=== PATIENT | male | born 1935 | race Asian ===

== ENCOUNTER 2017-02-03 13:31 | Inpatient (IN) | payer MEDICARE, OTHER ==
[~2017-02-03] VITALS: Ht 170.2 cm; Wt 74.7 kg
--- NOTE | 2017-02-03 14:34 | RADRPT ---
PROCEDURE: CT brain without contrast CLINICAL INDICATION: Seizure, altered mental status TECHNIQUE: CT of the brain without contrast performed on a multidetector CT scanner, with multiplan ar reformats. One or more of the following dose reduction techniques were used: Automated exposure control, adjustment in mA and / or kV according to patient size, use of iterative reconstructive luis f hnique. CTDIvol = 45 mGy; DLP = 720 mGy-cm. COMPARISON: None available FINDINGS: No acute intracranial hemorrhage is identified. There is prominence of the extraaxial spaces at the middle cranial fossa bilaterally following CSF density suggesting arachnoid cysts measuring up to a pproximately 4.2 cm on the left and 3 cm on the right. There is also suggestion of small area of en cephalomalacia of the anterior right temporal lobe with ex vacuo dilation of the right temporal horn . No significant mass effect or midline shift is identified. Ventricles and sulci are mild to moderately enlarged compatible with volume loss. There are moderate to severe areas of hypodensity in the periventricular - deep white matter which a re nonspecific but suggestive of chronic small vessel ischemic changes. Nascimento-white differentiation is preserved. Atherosclerotic calcifications of the proximal intracranial arteries are noted. There is partial bilateral ethmoid air cell opacification. Mastoid air cells and imaged paranasal s inuses grossly clear. IMPRESSION: 1. No evidence of acute intracranial pathology. 2. 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 3. Mild to moderate volume loss, with moderate to severe chronic small vessel ischemic changes. RPTAT: VV .Epifanio Padron MD, Date Time Electronically viewed and signed by .Epifanio Padron MD, MD on 02/03/2017 14:34 .O/
[2017-02-03] MEDS ORDERED: LEVETIRACETAM 500 MG (PMX) 100 ML IVPB ONE (15:00)
[2017-02-03 15:03] LABS: ADD SCAN DIFF NO
[2017-02-03 15:06] LABS: BASOPHILS % 0.2 % (0.0-2.0); HEMATOCRIT 42.9 % (42.0-52.0); HEMOGLOBIN 14.4 g/dl (14.0-18.0); LYMPHOCYTES % 7.9 % (15.0-51.0); MEAN CORPUSCULAR HEMOGLOBIN 32.6 pg (29.0-33.0); MEAN CORPUSCULAR HGB CONC 33.6 g/dl (32.0-37.0); MEAN CORPUSCULAR VOLUME 97.1 fl (82.0-101.0); MEAN PLATELET VOLUME 10.8 fl (7.4-10.4); MONOCYTE # 0.7 10^3/ul (0.3-0.9); MONOCYTES % 5.6 % (0.0-11.0); PLATELET COUNT 166 10^3/UL (140-415); RED BLOOD COUNT 4.42 10^6/ul (4.70-6.10); WHITE BLOOD COUNT 12.8 10^3/ul (4.8-10.8)
[2017-02-03] MEDS ORDERED: ATOR20TA38 PO (15:10)
[2017-02-03] MEDS ORDERED: CANA100T PO (15:12)
[2017-02-03] MEDS ORDERED: AMLO1CAP3 PO (15:12)
[2017-02-03] MEDS ORDERED: GLIM4TAB55 PO (15:12)
[2017-02-03] MEDS ORDERED: TAMS-14 PO (15:13)
[2017-02-03] MEDS ORDERED: SITA1TAB PO (15:13)
[2017-02-03] MEDS ORDERED: MONT10TA21 PO (15:14)
[2017-02-03] MEDS ORDERED: ADV25050 INHALATION (15:14)
[2017-02-03] MEDS ORDERED: ATOR40TA68 PO (15:15)
[2017-02-03] MEDS ORDERED: DORZ10DR6 BOTH EYES (15:17)
[2017-02-03 15:20] LABS: ALBUMIN 4.7 g/dl (3.3-4.9); ALBUMIN/GLOBULIN RATIO 1.74; CREATININE 1.01 mg/dl (0.61-1.24); POTASSIUM 4.1 mmol/L (3.5-5.1); TOTAL PROTEIN 7.4 g/dl (6.1-8.1)
[2017-02-03 15:27] LABS: ADD UMIC YES; URINE BILIRUBIN (Dip) NEGATIVE (NEGATIVE); URINE BLOOD (Dip) TRACE (NEGATIVE); URINE COLOR LT. YELLOW (YELLOW); URINE GLUCOSE (Dip) >=1000 % (NEGATIVE); URINE KETONES (Dip) 40 (NEGATIVE); URINE LEUKOCYTE ESTERASE (Dip) NEGATIVE (NEGATIVE); URINE NITRITE (Dip) NEGATIVE (NEGATIVE); URINE TOTAL PROTEIN (Dip) NEGATIVE (NEGATIVE); URINE UROBILINOGEN (Dip) 0.2 E.U./dL (0.1-1.0)
[2017-02-03 15:31] LABS: TROPONIN-I 0.069 ng/ml (0.00-0.12)
[2017-02-03 15:36] LABS: CALCIUM 10.4 mg/dl (8.4-10.2)
--- NOTE | 2017-02-03 15:49 | ERA ---
ER Documentation Chief Complaint Date/Time DATE: 02/03/17 TIME: 15:47 Chief Complaint BIBA, FOUND WANDERING ON THE STREET. HPI 81-year-old man brought in by EMS for confusion. They found him at a bus stop when multiple shirts and a jacket in hot weather, he was confused and not able to answer all questions, blood sugar at the scene was normal. He generally has a normal baseline mental status and has no history of seizure disorder. It seems he had recently fallen because of abrasions to the knee and wrist, he had no loss of bladder control although he may have lost bowel control because nurses noted feces in his pants. He has had no recent fevers or chills, no complaints of chest pain or shortness of breath. HPI was supplemented by later speaking to family members were at the bedside, reviewing past medical history, speaking to EMS, and nursing staff. ROS All systems reviewed and are negative except as per history of present illness. Medications Home Meds Reported Medications Dorzolamide/Timolol* (Dorzolamide/Timolol*) 10 Ml Drops, 1 DROP BOTH EYES BID, # 1 EA 02/03/17 Atorvastatin* (Atorvastatin*) 40 Mg Tablet, 40 MG PO QHS, #30 TAB 02/03/17 Montelukast Sodium* (Singulair*) 10 Mg Tablet, 10 MG PO QHS, #30 TAB 02/03/17 Salmeterol Xinaf/Fluticasone* (Advair*) 250-50 Diskus Inhaler, 1 INH INHALATION BID, #1 INHALER 02/03/17 Tamsulosin Hcl* (Flomax*) 0.4 Mg Cap.er.24h, 0.4 MG PO DAILY, CAP 02/03/17 Sitagliptin Phos/Metformin HCl (Janumet 50-500 mg Tablet) 1 Each Tablet, 1 EACH PO BID, TAB 02/03/17 Glimepiride* (Amaryl*) 4 Mg Tablet, 4 MG PO WITH BREAKFAST DINNE, TAB 02/03/17 Canagliflozin (Invokana) 100 Mg Tablet, 100 MG PO DAILY, TAB 02/03/17 Amlodipine Besylate/Benazepril (Lotrel 5-40 mg Capsule) 1 Each Capsule, 1 EACH PO DAILY, CAP 02/03/17 Discontinued Reported Medications Atorvastatin Calcium* (Atorvastatin Calcium*) 20 Mg Tablet, 20 MG PO QHS, #30 TAB 02/03/17 Allergies Allergies: Coded Allergies: No Known Allergy (Unverified , 02/03/17) PMhx/Soc Previous strokes, glaucoma, diabetes mellitus, hypertension, chronic obstructive pulmonary disease, recurrent dizziness FmHx Family History: diabetes Physical Exam Vitals Vital Signs Date Time Temp Pulse Resp B/P Pulse Ox O2 Delivery O2 Flow Rate FiO2 02/03/17 15:42 91 15 148/69 97 Nasal Cannula 2.0 02/03/17 15:10 94 18 144/74 97 Nasal Cannula 2.0 02/03/17 14:50 100.4 02/03/17 13:55 97.1 112 20 140/78 98 Physical Exam GENERAL: Well-developed, well-nourished, confused, dehydrated, afebrile, confused possibly postictal. HEENT: Dry mucous membranes, pink conjunctiva, no cervical spine tenderness or step-off deformities, no goiter, no jaundice or icterus, extraocular movements intact without pain. No submandibular induration, and no pharyngeal erythema NEURO: Eyes open, patient nonverbal, pupils constricted but reactive, no focal deficits or facial asymmetry, appears confused CARDIAC: Tachycardic and regular no murmurs rubs or gallops LUNGS: Clear bilaterally no wheezing crackles or stridor ABDOMEN: Soft nontender, no guarding, no rigidity, no rebound, no psoas sign no obturator sign. Normoactive bowel sounds SKIN: Warm and dry to touch, abrasion to the right medial wrist without bony deformity, no lacerations, no ecchymosis, no target lesions, and without ulcers EXTREMITIES: No clubbing cyanosis or edema, calves are bilaterally symmetrical, no Homans sign, no popliteal cord sign. Distal pulses equal and bilateral PSYCH: Normal affect without agitation or irritability Result Diagram: 02/03/17 1459 02/03/17 1459 Results 24 hrs Laboratory Tests Test 02/03/17 14:59 02/03/17 15:05 White Blood Count 12.810^3/ul Red Blood Count 4.4210^6/ul Hemoglobin 14.4g/dl Hematocrit 42.9% Mean Corpuscular Volume 97.1fl Mean Corpuscular Hemoglobin 32.6pg Mean Corpuscular Hemoglobin Concent 33.6g/dl Red Cell Distribution Width 13.0% Platelet Count 90646^3/UL Mean Platelet Volume 10.8fl Neutrophils % 86.0% Lymphocytes % 7.9% Monocytes % 5.6% Eosinophils % 0.0% Basophils % 0.2% Nucleated Red Blood Cells % 0.0/100WBC Neutrophils # 11.010^3/ul Lymphocytes # 1.010^3/ul Monocytes # 0.710^3/ul Eosinophils # 0.010^3/ul Basophils # 0.010^3/ul Nucleated Red Blood Cells # 0.010^3/ul Sodium Level 148mmol/L Potassium Level 4.1mmol/L Chloride Level 111mmol/L Carbon Dioxide Level 22mmol/L Anion Gap 19 Blood Urea Nitrogen 25mg/dl Creatinine 1.01mg/dl Glucose Level 281mg/dl Calcium Level 10.4mg/dl Total Bilirubin 1.0mg/dl Direct Bilirubin 0.00mg/dl Indirect Bilirubin 1.0mg/dl Aspartate Amino Transf (AST/SGOT) 25IU/L Alanine Aminotransferase (ALT/SGPT) 51IU/L Alkaline Phosphatase 91IU/L Troponin I 0.069ng/ml Total Protein 7.4g/dl Albumin 4.7g/dl Globulin 2.70g/dl Albumin/Globulin Ratio 1.74 Lipase 68U/L Urine Color LT. YELLOW Urine Clarity CLEAR Urine pH 5.0 Urine Specific Westhoff 1.010 Urine Ketones 40 Urine Nitrite NEGATIVE Urine Bilirubin NEGATIVE Urine Urobilinogen 0.2 E.U./dL Urine Leukocyte Esterase NEGATIVE Urine Microscopic RBC 0-2/HPF Urine Microscopic WBC 0-2/HPF Urine Transitional Epithelial Cells FEW Urine Hemoglobin TRACE Urine Glucose >=1000% Urine Total Protein NEGATIVE Current Medications Medications (Trade) Dose Ordered Sig/Hever Route PRN Reason Start Time Stop Time Status Last Admin Dose Admin Levetiracetam 100 ml @ 400 mls/hr ONCE ONCE IVPB 02/03/17 15:00 02/03/17 15:15 DC 02/03/17 15:35 Sodium Chloride (NS) 1,000 ml @ 1,000 mls/hr Q1H ONCE IV 02/03/17 16:00 02/03/17 16:59 Procedures/MDM IV line was established patient was placed on monitoring manager rhythm strip revealed a sinus tachycardia at 110 bpm with upright P and T waves. Rectal temperature was 100.4 and hyperthermic. One AP view of the chest performed, read by me reveals no acute infiltrates, normal mediastinum, sharp costophrenic and cardiac borders, no air under the diaphragm. Otherwise unremarkable chest x-ray. EKG performed, read by me revealed a normal sinus rhythm at 95 bpm, normal axis , with a right ventricular conduction delay QRS duration 100 ms with a first- degree atrial ventricular block at 208 ms, no concerning ST elevations or depressions noted. CT scan revealed right temporal encephalomalacia although no acute bleed mass or shift. Please refer to radiologist dictation for full report although given his presentation and CT scan findings may have a epileptogenic focus and had new onset seizures. Patient received 2 L normal saline intravenously for dehydration and Keppra 500 mg IV for possible seizure. I do not suspect sepsis or septic shock. CBC was unremarkable, electrolytes revealed dehydration with a BUN/creatinine of 25/1, liver function tests are normal, troponin was negative. Urine analysis was negative for infection. Reevaluation: Patient's mental status has improved he is answering questions and following commands, family members are at the bedside state he is almost back to his baseline. Critical Care: Time: 33 minutes, this was time separate from other procedures. Treatments/Evaluations: Close monitoring and treatment of unstable vital signs, cardiorespiratory, and neurologic status, while maintaining tight balance of fluid, respiratory, and cardiac interventions. Patient will be admitted to telemetry setting for syncope possible new onset seizure. Patient was definitely dehydrated and may have been suffering from heat stroke Departure Diagnosis: Primary Impression: Acute encephalopathy Additional Impressions: Seizure Syncope Qualified Code: R55 - Syncope, unspecified syncope type Dehydration Condition: CLARA Valentin MD Feb 03, 2017 15:49
[2017-02-03 15:53] LABS: TRANSITIONAL EPI CELLS,URINE FEW; URINE RBCS 0-2 /HPF (0)
[2017-02-03] MEDS ORDERED: SOD CHLORIDE 0.9% 1,000 ML IV ONE (16:00)
--- NOTE | 2017-02-03 16:06 | RADRPT ---
PROCEDURE: XR Chest. CLINICAL INDICATION: Abdominal pain. TECHNIQUE: Single frontal view of the chest was obtained. COMPARISON: No. FINDINGS: The soft tissues are normal. There are degenerative osteophytes in the thoracic spine. The left ve ntricle is borderline enlarged. The cardiomediastinal silhouette and hilar structures are normal. T he pulmonary vasculature is normal. There is a left-sided aorta. The lungs are clear. The costophr enic angles are normal. There are clips along the lower left side of the neck. IMPRESSION: 1. There is no evidence of active cardiopulmonary disease. 2. No evidence of pneumoperitoneum. RPTAT:AAJJ Physician Eitan Date Time Electronically viewed and signed by Simon Corona Physician on 02/03/2017 16:06 ANAT/
--- NOTE | 2017-02-03 17:54 | RADRPT ---
PROCEDURE: XR right wrist. CLINICAL INDICATION: Wrist pain TECHNIQUE: 4 views are available for review. COMPARISON: No prior studies are available for comparison. FINDINGS: The osseous structures are normal in mineralization, architecture and alignment. No fracture or oss eous lesion is identified. The joints are unremarkable. No erosions are identified.The soft tissues are unremarkable. IMPRESSION: Unremarkable examination. RPTAT: HGDB .Haile Verma MD, MD Date Time Electronically viewed and signed by .Haile Verma MD, on 02/03/2017 17:54 .B/
[2017-02-03 19:00] VITALS: TEMP 98
[2017-02-03] MEDS ORDERED: ONDANSETRON 4 MG INJ IV PRN (19:30)
[2017-02-03] MEDS ORDERED: DOCUSATE SODIUM 100 MG CAP PO PRN (19:30)
[2017-02-03] MEDS ORDERED: NACL 0.9% 3 ML SYG IV SCH (19:30)
[2017-02-03] MEDS ORDERED: morphine 2 MG INJ IV PRN (19:30)
[2017-02-03] MEDS ORDERED: HYDROCODONE/APAP (5/325) TAB PO PRN (19:30)
[2017-02-03] MEDS ORDERED: ACETAMINOPHEN 325 MG TAB PO PRN (19:30)
[2017-02-03] MEDS ORDERED: GLUCOSE GEL 15 GRAM TUBE BUCCAL PRN (20:00)
[2017-02-03] MEDS ORDERED: GLUCOSE GEL 15 GRAM TUBE PO PRN ×2 (20:00)
[2017-02-03] MEDS ORDERED: GLUCAGON 1 MG INJ IM PRN (20:00)
[2017-02-03] MEDS ORDERED: DEXTROSE 50% 50 ML SYRINGE IV PRN ×2 (20:00)
[2017-02-03 20:35] VITALS: BP 129/73; RESP 18
[2017-02-03] MEDS: INSULIN GLARGINE [LANtus] 3 ML PEN SC SCH (20:45)
[2017-02-03 21:03] VITALS: BP 171/83; PULSE 76; RESP 16
--- NOTE | 2017-02-03 21:07 | RADRPT ---
PROCEDURE: Carotid ultrasound CLINICAL INDICATION: Syncope, carotid bruits TECHNIQUE: Nascimento scale, color doppler, spectral doppler ultrasound of the bilateral carotid and eli tebral arteries. This study indirectly references the measurement of the distal ICA diameter as the denominator for s tenosis measurement. Validated velocity measurements with angiographic measurements, velocity criter ia are extrapolated from diameter data as defined by: *Cartoid artery stenosis: nascimento-scale and Doppl er US diagnosis. Society of Radiologists in Ultrasound Consensus Conference. Radiology 2003; 229: 34 0-346. SRU Consensus Conference Criteria for the Diagnosis of Carotid Artery Stenosis* Degree of Stenosis, % ICA PSV, cm/sec Plaque Estimate, % ICA/CCA PSV Ratio Normal <125 None <2.0 <50 <125 <50 <2.0 50 69 125-230 >50 2.0-4.0 >70 but less than near occlusion >230 >50 <4.0 Near occlusion High, low, or undetectable Visible Variable Total occlusion Undetectable Visible, no detectable lumen Not applicable COMPARISON: No prior studies are available for comparison. FINDINGS: Location Right CCA72 cm/sec Prox ICA 31 cm/sec Mid ICA37 cm/sec Dist ICA39 cm/sec ECA41 cm/sec ICA/CCA0.9 Left CCA96 cm/sec Prox ICA 23 cm/sec Mid ICA32 cm/sec Dist ICA37 cm/sec ECA27 cm/sec ICA/CCA0.4 Plaque burden: Calcified plaque at the origin of the left internal carotid artery. Antegrade flow is seen within the vertebral arteries bilaterally. IMPRESSION: Right internal carotid artery appears patent. Calcified plaque at the origin of the left internal carotid artery does not produce significant flow acceleration compatible with less than 50% stenosis. RPTAT: AADD .Panda Cox MD, Date Time Electronically viewed and signed by .Panda Cox MD, on 02/03/2017 21:07 .B/
[2017-02-03 21:09] VITALS: PULSE 75
[2017-02-03 22:25] VITALS: BP 159/76; PULSE 75
[2017-02-03] MEDS: SALMETEROL/FLUTICASONE 250/50 INHA INH SCH (22:29)
[2017-02-03] MEDS: DORZOLAMIDE/TIMOLOL 10 ML OPH BOTH EYES SCH (22:30)
[2017-02-03] MEDS: ATORVASTATIN 40 MG TAB PO SCH (22:30)
[2017-02-03] MEDS: MONTELUKAST 10 MG TAB PO SCH (22:30)
[2017-02-03] MEDS: INSULIN ASPART [NOVOLOG] 3 ML PEN SC SCH (22:33)
[2017-02-03] MEDS: SOD CHLORIDE 0.45% 1,000 ML IV SCH (22:45)
[2017-02-04] VITALS (12 sets, daily range): BP systolic 137–170; BP diastolic 63–76; PULSE 69–80; RESP 13–19
[2017-02-04] MEDS: ACCUCHECK AT 2AM (Patients on SS coverage) XX SCH (02:00)
[2017-02-04] MEDS: SOD CHLORIDE 0.45% 1,000 ML IV SCH ×2 (05:10→10:54)
--- NOTE | 2017-02-04 07:06 | HP ---
DATE OF ADMISSION: 02/03/2017 CHIEF COMPLAINT: Syncope. HISTORY OF PRESENT ILLNESS: The patient is an 81-year-old male with a history of noninsulin requiri ng diabetes, possible dementia, BPH, glaucoma. The patient presents after being found wandering on the street. The patient was found at bus stop with multiple shirts and jacket in the hot weather. He was confused and unable to answer questions. Blood sugar at the scene was reportedly normal. Th e patient has ____ history of seizure disorder. The patient was noted to have abrasions to the knee and wrist. The patient did have feces noted in his pants. 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 The patient does often get lost. Of note, the patient does live alone at home and does go to an adult care center daily. The history is provided the patient's son-in-law who was at [facility]. PAST MEDICAL HISTORY: As per HPI, which includes glaucoma, non-insulin requiring diabetes, hyperten gael, COPD, and likely early to moderate dementia. The patient has ____ reported history of strokes or seizures. HOME MEDICATIONS: 1. Atorvastatin. 2. Singulair. 3. Advair. 4. Flomax. 5. Janumet. 6. Glimepiride. 7. Invokana. 8. Norvasc. 9. Benazepril. 10. Dorzolamide. ALLERGIES: NO KNOWN DRUG ALLERGIES. FAMILY HISTORY: Diabetes. SOCIAL HISTORY: The patient lives alone at home. He does go to adult daycare center. There are no reports of any current smoking abuse, but does have a history of smoking in the past. No alcohol a buse or drugs. REVIEW OF SYSTEMS: A 12-point review of systems difficult to obtain, as the patient's mentation is somewhat poor, but he has no significant complaints at this time. PHYSICAL EXAMINATION: VITAL SIGNS: Temperature is 97.0, T-max 100.4, pulse is 78, respiratory rate 17, BP is 125/70, satu ration 98% on 2 liters. GENERAL: No acute distress. The patient is alert and oriented to where he is, somewhat oriented to the date, but he got the century wrong. He is in no acute distress. HEENT: Some abrasions noted. LUNGS: Clear to auscultation. CARDIOVASCULAR: Regular rate and rhythm. ABDOMEN: Nondistended, nontender, soft. EXTREMITIES: No clubbing, cyanosis, or edema. LABORATORY TESTS: White count is 12.8, hemoglobin is 14.4, platelets are 166. Chemistry: Sodium i s 148, chloride is 111, anion gap is 19, BUN is 25, glucose 281, calcium is 10.4. UA is within norm al limits, ketones are 40. DIAGNOSTICS: Brain CT shows no evidence of acute intracranial pathology. He has right temporal enc ephalomalacia, mild to moderate volume loss with moderate to severe chronic small vessel ischemic ch anges. There are also findings suggestive of bilateral midline cranial fossa arachnoid cyst. Chest x-ray shows no evidence of active cardiopulmonary disease. Wrist x-ray is unremarkable. ASSESSMENT AND PLAN: 1. Acute encephalopathy with possible syncope. This may be secondary to severe dehydration. Will treat with IV fluids. We will get a PT evaluation. Will get a 2D echo and carotid ultrasound. 2. Diabetes with hyperglycemia. The patient's diabetes is poorly controlled. The patient does hav e several p.o. medications. Will put patient on subcutaneous insulin. 3. Anion gap metabolic acidosis. This may be secondary to lactic acidosis. Will check a lactic ac id level. The patient may have an anion gap acidosis secondary to starvation ketoacidosis, as the p atient is living alone at home and appears to not be able to care for himself. Diabetic ketoacidosi s is less likely as his sugars are not significantly elevated. Will monitor anion gap. Will treat with IV fluids. Once again, will follow up lactic acid level. 4. Leukocytosis, likely reactive. 5. Hypernatremia with azotemia secondary to dehydration. Will treat with IV fluids. 6. History of carotid endarterectomy. We will follow up on carotid ultrasound. 7. History of hypertension. Resume home medications. 8. Chronic obstructive pulmonary disease. Continue home Advair. 9. Early to moderate dementia. We will get a telephonic nurse case manager evaluate for possible SNF or assisted li johnlucia. 10. Prophylaxis: Lovenox. Dictated By: JOY SCHAEFFER MD BS/NTS Conf#: [id number] DID#: [id number]
[2017-02-04 07:32] LABS: ADD SCAN DIFF NO
[2017-02-04 07:38] LABS: BASOPHILS % 0.1 % (0.0-2.0); HEMATOCRIT 42.3 % (42.0-52.0); HEMOGLOBIN 13.7 g/dl (14.0-18.0); LYMPHOCYTES # 1.7 10^3/ul (0.8-2.9); LYMPHOCYTES % 12.5 % (15.0-51.0); MEAN CORPUSCULAR HEMOGLOBIN 32.5 pg (29.0-33.0); MEAN CORPUSCULAR HGB CONC 32.4 g/dl (32.0-37.0); MEAN CORPUSCULAR VOLUME 100.2 fl (82.0-101.0); MEAN PLATELET VOLUME 11.3 fl (7.4-10.4); MONOCYTE # 1.1 10^3/ul (0.3-0.9); MONOCYTES % 7.7 % (0.0-11.0); NEUTROPHIL # 11.1 10^3/ul (1.6-7.5); NEUTROPHILS % 79.3 % (39.0-77.0); PLATELET COUNT 152 10^3/UL (140-415); RED BLOOD COUNT 4.22 10^6/ul (4.70-6.10); RED CELL DISTRIBUTION WIDTH 13.6 % (11.5-14.5)
[2017-02-04] MEDS: INSULIN ASPART [NOVOLOG] 3 ML PEN SC SCH ×7 (07:53→21:00)
[2017-02-04 08:07] LABS: CALCIUM 8.9 mg/dl (8.4-10.2); CHOL/HDL RATIO 3.5 RATIO; CREATININE 0.95 mg/dl (0.61-1.24); MAGNESIUM 2.5 mg/dl (1.7-2.5); PHOSPHORUS 4.9 mg/dl (2.5-4.9); POTASSIUM 4.5 mmol/L (3.5-5.1)
[2017-02-04] MEDS: BENAZEPRIL 40 MG TAB PO SCH (08:18)
[2017-02-04] MEDS: TAMSULOSIN (SR) 0.4 MG CAP PO SCH (08:18)
[2017-02-04] MEDS: AMLODIPINE 5 MG TAB PO SCH (08:18)
[2017-02-04] MEDS: SALMETEROL/FLUTICASONE 250/50 INHA INH SCH ×2 (08:19→22:52)
[2017-02-04] MEDS: DORZOLAMIDE/TIMOLOL 10 ML OPH BOTH EYES SCH ×2 (08:19→22:52)
[2017-02-04 08:23] LABS: T3 UPTAKE 41.4 % (23.5-40.5)
[2017-02-04] MEDS: ENOXAPARIN 40 MG/0.4 ML SYG SC SCH (08:29)
[2017-02-04] MEDS ORDERED: NON-FORMULARY/PATIENT OWN MED (Amlodipine Besylate/Benazepril (Lotrel 5-40 mg Capsule) 1 E PO SCH (09:00)
--- NOTE | 2017-02-04 10:14 | RADRPT ---
Echocardiogram Report Patient Name: JEN BRAY Gender: Male Date: 1935 Study Date: 04-Feb-2017 Jewel Cupping Machine Operator: [facility] Location: [facility] Ref. Physician: JOY SCHAEFFER Quality: Good Procedures: Transthoracic echocardiogram with complete 2D, M-Mode, and doppler examination. Indications: Syncope. 2D/M Mode Doppler Measurement Value Normal Ranges Measurement Value Normal Ranges LVIDd 2D 5.5 3.5 - 5.6 cm MONAE Vmax 2.2 cm2 LVIDs 2D 2.6 2.1 - 4.1 cm AV Peak Nic 1.3 m/sec FS 2D 52.3 % AV Peak PG 7.0 mmHg LVPWd 2D 1.0 0.6 - 1.1 cm LVOT Peak Nic 0.9 m/sec IVSd 2D 0.9 0.6 - 1.1 cm LVOT Peak PG 4.0 mmHg IVS/LVPW 2D 0.9 MV E Peak Nic 0.5 m/sec AoR Diam 2D 3.3 2.0 - 3.7 cm MV A Peak Nic 1.0 m/sec LA/Ao 2D 1 0 - 1 MV E/A 0.5 EDV 2D 167.0 cm3 MV Decel Time 239 msec ESV 2D 18.2 cm3 MV E/A 0.5 LA Dimen 2D 3.5 2.3 - 4.0 cm TR Peak Nic 2.6 m/sec LVOT Diam 2.0 cm TR Peak PG 27.0 mmHg LVOT Area 3.1 cm2 RVSP 30.0 mmHg Findings Left Ventricle: Normal left ventricular systolic function. Normal left ventricular cavity size. Normal left ventricular wall thickness. Ejection fraction is visually estimated at 65 %. Tissue Doppler/Mitral Doppler indices are consistent with impaired relaxation (Stage I diastolic dysfunction). Right Ventricle: Normal right ventricular size. Normal right ventricular systolic function. Left Atrium: The left atrium is normal in size. Right Atrium: The right atrium is normal in size. Mitral Valve: Normal appearance and function of the mitral valve with trace physiologic regurgitation. Aortic Valve: No hemodynamically significant aortic stenosis by doppler. Aortic cusps appear mildly calcified. Trace aortic valve regurgitation. Tricuspid Valve: Normal appearance and function of the tricuspid valve with trace physiologic regurgitation. Normal right ventricular systolic pressure. Pulmonic Valve: Pulmonic valve not well visualized. Pericardium: Normal pericardium with no significant pericardial effusion. Aorta: Normal aortic root. IVC: Normal size and normal respiratory collapse consistent with normal right atrial pressure. Conclusions 1.Normal left ventricular systolic function. Normal left ventricular cavity size. Normal left ventricular wall thickness. Ejection fraction is visually estimated at 65 %. Tissue Doppler/Mitral Doppler indices are consistent with impaired relaxation (Stage I diastolic dysfunction). 2.Normal appearance and function of the mitral valve with trace physiologic regurgitation. 3.No hemodynamically significant aortic stenosis by doppler. Aortic cusps appear mildly calcified. Trace aortic valve regurgitation. 4.Normal appearance and function of the tricuspid valve with trace physiologic regurgitation. Normal right ventricular systolic pressure. Electronically Signed By: Tremayne Khanna 04-Feb-2017 10:14:12 -0700 Patient Name: JEN BRAY Study Date: 04-Feb-2017 [id number]
--- NOTE | 2017-02-04 15:04 | PN ---
Date/Time of Note Date/Time of Note DATE: 02/04/17 TIME: 14:56 Assessment/Plan VTE Prophylaxis VTE Prophylaxis Intervention: LMWH Lines/Catheters IV Catheter Type (from [facility]): Peripheral IV Urinary Cath still in place: No Assessment/Plan Chief Complaint/Hosp Course 1. Acute on chronic encephalopathy with possible syncope likely secondary to severe dehydration. Continue IV fluids Carotid ultrasound 2D echo showed no etiology for syncope PT and OT evaluation Patient appears to have moderate dementia and may need SNF versus assisted living 2. Diabetes with hyperglycemia-sugars are now stable A1c 8.6 Continue subcu insulin 3. Anion gap metabolic acidosis secondary to lactic acidosis versus starvation ketoacidosis 4. Leukocytosis, likely reactive. 5. Hypernatremia with azotemia secondary to dehydration-sodium increased today Increase IV fluid rate Nephrology consultation 6. History of carotid endarterectomy Carotid ultrasound shows no significant findings 7. History of hypertension-stable Continue home medications. 8. Chronic obstructive pulmonary disease Continue home Advair. Prophylaxis: Lovenox Problems: Subjective 24 Hr Interval Summary Constitutional: no complaints Exam/Review of Systems Vital Signs Vitals Vital Signs Date Time Temp Pulse Resp B/P Pulse Ox O2 Delivery O2 Flow Rate FiO2 02/04/17 12:00 80 02/04/17 11:52 98.0 17 137/63 95 02/03/17 21:03 Room Air 02/03/17 19:00 2.0 Intake and Output 02/03/17 02/03/17 02/04/17 15:00 23:00 07:00 Intake Total 1100 ml 600 ml Balance 1100 ml 600 ml Exam Constitutional: alert, No oriented Respiratory: clear to auscultation Cardiovascular: regular rate and rhythm Gastrointestinal: soft, No distended Musculoskeletal: nl extremities to inspection Results Result Diagram: 02/04/17 0650 02/04/17 0650 Results 24 hrs Laboratory Tests Test 02/03/17 14:59 02/03/17 15:05 02/03/17 20:43 02/03/17 22:28 White Blood Count 12.8 H Red Blood Count 4.42 L Hemoglobin 14.4 Hematocrit 42.9 Mean Corpuscular Volume 97.1 Mean Corpuscular Hemoglobin 32.6 Mean Corpuscular Hemoglobin Concent 33.6 Red Cell Distribution Width 13.0 Platelet Count 166 Mean Platelet Volume 10.8 H Neutrophils % 86.0 H Lymphocytes % 7.9 L Monocytes % 5.6 Eosinophils % 0.0 Basophils % 0.2 Nucleated Red Blood Cells % 0.0 Neutrophils # 11.0 H Lymphocytes # 1.0 Monocytes # 0.7 Eosinophils # 0.0 Basophils # 0.0 Nucleated Red Blood Cells # 0.0 Sodium Level 148 H Potassium Level 4.1 Chloride Level 111 H Carbon Dioxide Level 22 Anion Gap 19 H Blood Urea Nitrogen 25 H Creatinine 1.01 Glucose Level 281 H Calcium Level 10.4 H Total Bilirubin 1.0 Direct Bilirubin 0.00 Indirect Bilirubin 1.0 Aspartate Amino Transf (AST/SGOT) 25 Alanine Aminotransferase (ALT/SGPT) 51 Alkaline Phosphatase 91 Troponin I 0.069 Total Protein 7.4 Albumin 4.7 Globulin 2.70 Albumin/Globulin Ratio 1.74 Lipase 68 Urine Color LT. YELLOW Urine Clarity CLEAR Urine pH 5.0 Urine Specific Commerce 1.010 Urine Ketones 40 Urine Nitrite NEGATIVE Urine Bilirubin NEGATIVE Urine Urobilinogen 0.2 E.U./dL Urine Leukocyte Esterase NEGATIVE Urine Microscopic RBC 0-2 Urine Microscopic WBC 0-2 Urine Transitional Epithelial Cells FEW Urine Hemoglobin TRACE Urine Glucose >=1000 Urine Total Protein NEGATIVE Bedside Glucose 205 196 Test 02/04/17 06:50 02/04/17 07:49 02/04/17 12:13 White Blood Count 14.0 H Red Blood Count 4.22 L Hemoglobin 13.7 L Hematocrit 42.3 Mean Corpuscular Volume 100.2 Mean Corpuscular Hemoglobin 32.5 Mean Corpuscular Hemoglobin Concent 32.4 Red Cell Distribution Width 13.6 Platelet Count 152 Mean Platelet Volume 11.3 H Neutrophils % 79.3 H Lymphocytes % 12.5 L Monocytes % 7.7 Eosinophils % 0.0 Basophils % 0.1 Nucleated Red Blood Cells % 0.0 Neutrophils # 11.1 H Lymphocytes # 1.7 Monocytes # 1.1 H Eosinophils # 0.0 Basophils # 0.0 Nucleated Red Blood Cells # 0.0 Sodium Level 150 H Potassium Level 4.5 Chloride Level 114 H Carbon Dioxide Level 21 Anion Gap 20 H Blood Urea Nitrogen 32 H Creatinine 0.95 Glucose Level 131 # Hemoglobin A1c 8.6 H Calcium Level 8.9 Phosphorus Level 4.9 Magnesium Level 2.5 Triglycerides Level 88 Cholesterol Level 145 LDL Cholesterol, Calculated 86 HDL Cholesterol 41 Cholesterol/HDL Ratio 3.5 Free Thyroxine Index 2.19 Thyroxine (T4) 5.3 L Triiodothyronine (T3) Uptake 41.4 H Bedside Glucose 132 129 Medications Medications Current Medications Sodium Chloride (1/2 NS) 1,000 ml @ 150 mls/hr Q6H40M IV Last administered on 02/04/17 10:54; Admin Dose 150 MLS/HR; Start 02/03/17 at 19:10 Ondansetron HCl (Zofran Inj) 4 mg Q6H PRN IV NAUSEA AND/OR VOMITING; Start 02/03 at 19:30 Acetaminophen (Tylenol Tab) 650 mg Q6H PRN PO PAIN LEVEL 1-3 OR FEVER; Start at 19:30 Acetaminophen/ Hydrocodone Bitart ([place] (5/325)) 1 tab Q6H PRN PO MODERATE PAIN LEVEL 4-6; Start 02/03/17 at 19:30 Morphine Sulfate (morphine) 2 mg Q4H PRN IV SEVERE PAIN LEVEL 7-10; Start at 19:30 Docusate Sodium (Colace) 100 mg Q12H PRN PO CONSTIPATION; Start 02/03/17 at 19: 30 Enoxaparin Sodium (Lovenox) 40 mg DAILY SC Last administered on 02/04/17 08:29 ; Admin Dose 40 MG; Start 02/04/17 at 09:00 Atorvastatin Calcium (Lipitor) 40 mg QHS PO Last administered on 02/03/17 22:30 ; Admin Dose 40 MG; Start 02/03/17 at 21:00 Dorzolamide/ Timolol (Cosopt) 1 drop BID BOTH EYES Last administered on 08:19; Admin Dose 1 DROP; Start 02/03/17 at 21:00 Montelukast Sodium (Singulair) 10 mg QHS PO Last administered on 02/03/17 22:30 ; Admin Dose 10 MG; Start 02/03/17 at 21:00 Salmeterol Xinafoate/ Fluticasone (Advair 250/50 Diskus) 1 inh BID INH Last administered on 02/04/17 08:19; Admin Dose 1 INH; Start 02/03/17 at 21:00 Tamsulosin HCl (Flomax) 0.4 mg DAILY PO Last administered on 02/04/17 08:18; Admin Dose 0.4 MG; Start 02/04/17 at 09:00 Insulin Glargine (Lantus) 20 unit DAILY@20 SC Last administered on 02/03/17 20: 45; Admin Dose 20 UNIT; Start 02/03/17 at 20:00 Diagnostic Test (Pha) (Accu-Chek) 1 ea 02 XX ; Start 02/04/17 at 02:00 Miscellaneous Information 1 ea NOTE XX ; Start 02/03/17 at 20:00 Glucose (Glutose) 15 gm Q15M PRN PO DECREASED GLUCOSE; Start 02/03/17 at 20:00 Glucose (Glutose) 22.5 gm Q15M PRN PO DECREASED GLUCOSE; Start 02/03/17 at 20:00 Dextrose (D50w Syringe) 25 ml Q15M PRN IV DECREASED GLUCOSE; Start 02/03/17 at 20:00 Dextrose (D50w Syringe) 50 ml Q15M PRN IV DECREASED GLUCOSE; Start 02/03/17 at 20:00 Glucagon (Glucagen) 1 mg Q15M PRN IM DECREASED GLUCOSE; Start 02/03/17 at 20:00 Glucose (Glutose) 15 gm Q15M PRN BUCCAL DECREASED GLUCOSE; Start 02/03/17 at 20: 00 Amlodipine Besylate (Norvasc) 5 mg DAILY PO Last administered on 02/04/17 08:18 ; Admin Dose 5 MG; Start 02/04/17 at 09:00 Benazepril HCl (Lotensin) 40 mg DAILY PO Last administered on 02/04/17 08:18; Admin Dose 40 MG; Start 02/04/17 at 09:00 JOY SCHAEFFER Feb 04, 2017 15:04
--- NOTE | 2017-02-04 17:56 | CONS ---
DATE OF ADMISSION: 02/03/2017 DATE OF CONSULTATION: 02/04/2017 TYPE OF CONSULTATION: Nephrology. REASON FOR CONSULTATION: Acute kidney hypernatremia, sodium 150 and prerenal azotemia. HISTORY OF PRESENT ILLNESS: This is an 81-year-old male who has a past medical history of diabetes mellitus, history of carotid endarterectomy and hyperlipidemia, history of hypertension and history of COPD. The patient presented with acute on chronic encephalopathy with possible syncope secondary to severe dehydration. The patient was a prerenal azotemic and also had anion gap metabolic acidos is secondary to lactic acidosis. Patient received IV fluids for hydration. He was hypernatremic wi th a sodium of 148, chloride was 111 on admission, which worsened to sodium of 150 and the chloride of 114. The patient is currently on the telemetry floor and renal has been consulted for hypernatre seng and further management of her electrolytes. The patient is currently getting 1/2 NS at 150 mL h our. The patient has a history of diabetes mellitus and the blood sugar has been running around 120 s to 130s. REVIEW OF SYSTEMS: As per HPI. PAST MEDICAL HISTORY: Hypertension, diabetes mellitus type 2, BPH, COPD, former smoking, history of a previous stroke and previous TIA. History of carotid atherosclerosis. PAST SURGICAL HISTORY: History of carotid endarterectomy. SOCIAL HISTORY: No smoking, alcohol or recreational drug use. The patient is a former smoker and c urrently has COPD and emphysema. FAMILY HISTORY: Not available. PHYSICAL EXAMINATION: VITAL SIGNS: Temperature 97.5, heart rate 68, respirations 17, blood pressure 148/71, saturation is 94% on room air. GENERAL: Awake, alert, not oriented to the place and person. HEENT: Pupils equal, round, reactive to light and accommodation. Extraocular muscles are intact. EXTREMITIES: No clubbing, cyanosis, or edema. LUNGS: Decreased breath sounds at both lung bases. NEUROLOGICAL: Not cooperating. ABDOMEN: Soft, nontender, nondistended. Bowel sounds are present. PSYCHIATRIC: Appropriate affect and mood. LABORATORY DATA/DIAGNOSTIC IMAGIN. Sodium 150, potassium 4.5, chloride 114, bicarbonate 21, BUN 32, creatinine 0.9, glucose 131, ca lcium 8.9, magnesium 2.5. LFTs are normal. Urinalysis shows a few transitional cells and trace hem oglobin, negative urine protein, WBC 14, hemoglobin 13.7, platelet count is 152. 2. CT head without contrast negative. 3. X-ray of the wrist is negative. 4. Carotid Doppler ultrasound shows calcified plaque in the region of the left internal carotid art yovany, does not produce any significant flow problem suggestive of any stenosis. It is less than 50%. 5. Right internal carotid artery appears patent. IMPRESSION: This is an 81-year-old male who is admitted for acute on chronic encephalopathy and carley zhang has been consulted for #1: 1. Acute hypernatremia, likely secondary to free water deficit of approximately 2 liters. 2. Prerenal azotemia. 3. Anion gap metabolic acidosis secondary to lactic acidosis. 4. Acute on chronic encephalopathy with possible syncope secondary to moderate to severe dehydratio n. 5. Diabetes mellitus type 2. 6. Hypertension. 7. Hyperlipidemia. 8. History of carotid endarterectomy. 9. Chronic obstructive pulmonary disease with previous history of smoking. PLAN: 1. Thank you, Dr. Tomás Ferrara, for this consultation. The patient's sodium has been trending up. The patient is currently on IV fluids 1/2 NS at 150 mL/hour. I will change the IV fluids to D5W a t 100 mL per hour. Patient's creatinine has been improved to normal. Patient will need better glyc emic control. Currently the patient is on Lantus 20 units subcutaneous daily and NovoLog sliding sc minh and mealtime insulin. I will give the patient D5W for IV fluid hydration. 2. Free water q.6h. 200 mL has been ordered. 3. The patient is currently seen on the telemetry floor and he will be followed up along with his c ourse in the hospital. Dictated By: ASHA VERA MD, KP/KATHERINE Conf#: [id number] DID#: [id number]
[2017-02-04] MEDS: POTASSIUM CHLORIDE 10 MEQ in DEXTROSE 5% 1,000 ML IV SCH (18:33)
[2017-02-04] MEDS: ATORVASTATIN 40 MG TAB PO SCH (22:53)
[2017-02-04] MEDS: MONTELUKAST 10 MG TAB PO SCH (22:53)
[2017-02-04] MEDS: INSULIN GLARGINE [LANtus] 3 ML PEN SC SCH (23:04)
[2017-02-05] VITALS (12 sets, daily range): BP systolic 114–148; BP diastolic 56–70; PULSE 61–77; RESP 18–20; Ht 170.2 cm; Wt 74.7 kg
[2017-02-05] MEDS: ACCUCHECK AT 2AM (Patients on SS coverage) XX SCH ×2 (02:00→21:28)
[2017-02-05] MEDS: POTASSIUM CHLORIDE 10 MEQ in DEXTROSE 5% 1,000 ML IV SCH (06:22)
[2017-02-05 07:04] LABS: ADD SCAN DIFF NO
[2017-02-05 07:13] LABS: BASOPHILS % 0.2 % (0.0-2.0); EOSINOPHILS % 0.3 % (0.0-7.0); HEMATOCRIT 42.6 % (42.0-52.0); LYMPHOCYTES # 2.4 10^3/ul (0.8-2.9); LYMPHOCYTES % 18.7 % (15.0-51.0); MEAN CORPUSCULAR HEMOGLOBIN 32.1 pg (29.0-33.0); MEAN CORPUSCULAR HGB CONC 32.9 g/dl (32.0-37.0); MEAN CORPUSCULAR VOLUME 97.7 fl (82.0-101.0); MEAN PLATELET VOLUME 11.3 fl (7.4-10.4); MONOCYTE # 0.9 10^3/ul (0.3-0.9); MONOCYTES % 6.6 % (0.0-11.0); NEUTROPHIL # 9.6 10^3/ul (1.6-7.5); NEUTROPHILS % 73.8 % (39.0-77.0); PLATELET COUNT 166 10^3/UL (140-415); RED BLOOD COUNT 4.36 10^6/ul (4.70-6.10); RED CELL DISTRIBUTION WIDTH 13.2 % (11.5-14.5); WHITE BLOOD COUNT 12.9 10^3/ul (4.8-10.8)
[2017-02-05] MEDS: INSULIN ASPART [NOVOLOG] 3 ML PEN SC SCH ×7 (07:45→21:00)
[2017-02-05 07:51] LABS: CALCIUM 8.7 mg/dl (8.4-10.2); CREATININE 0.91 mg/dl (0.61-1.24); POTASSIUM 4.1 mmol/L (3.5-5.1)
[2017-02-05] MEDS: ENOXAPARIN 40 MG/0.4 ML SYG SC SCH (08:27)
[2017-02-05] MEDS: TAMSULOSIN (SR) 0.4 MG CAP PO SCH (08:29)
[2017-02-05] MEDS: BENAZEPRIL 40 MG TAB PO SCH (08:30)
[2017-02-05] MEDS: AMLODIPINE 5 MG TAB PO SCH (08:30)
[2017-02-05] MEDS: SALMETEROL/FLUTICASONE 250/50 INHA INH SCH ×2 (08:32→21:18)
[2017-02-05] MEDS: DORZOLAMIDE/TIMOLOL 10 ML OPH BOTH EYES SCH ×2 (08:33→21:18)
--- NOTE | 2017-02-05 14:39 | CONS ---
Date/Time of Note Date/Time of Note DATE: 02/05/17 TIME: 14:37 Assessment/Plan Assessment/Plan Additional Assessment/Plan 1. Acute hypernatremia, likely secondary to free water deficit of approximately 2 liters. 2. Prerenal azotemia. 3. Anion gap metabolic acidosis secondary to lactic acidosis. 4. Acute on chronic encephalopathy with possible syncope secondary to moderate to severe dehydration. 5. Diabetes mellitus type 2. 6. Hypertension. 7. Hyperlipidemia. 8. History of carotid endarterectomy. 9. Chronic obstructive pulmonary disease with previous history of smoking. PLAN: IVF 1/ NS was stoppped started on D5W with KCL yesterday, today na improved to normal, Cr normal Decrease IVF rate to 50 cc/ hr x 1 liter then stop will follow up Consultation Date/Type/Reason Admit Date/Time Feb 03, 2017 at 16:01 Initial Consult Date Type of Consultation: NEPHROLOGY Reason for Consultation Hypernatremia Referring Provider: JOY SCHAEFFER 24 HR Interval Summary Free Text/Dictation Na improved to normal with D5 W Exam/Review of Systems Vital Signs Vitals Vital Signs Date Time Temp Pulse Resp B/P Pulse Ox O2 Delivery O2 Flow Rate FiO2 02/05/17 12:25 67 02/05/17 11:44 98.4 20 147/69 98 02/03/17 21:03 Room Air 02/03/17 19:00 2.0 Intake and Output 02/04/17 02/04/17 02/05/17 15:00 23:00 07:00 Intake Total 400 ml 1635 ml 750 ml Balance 400 ml 1635 ml 750 ml Exam GENERAL: Awake, alert, not oriented to the place and person. HEENT: Pupils equal, round, reactive to light and accommodation. Extraocular muscles are intact. EXTREMITIES: No clubbing, cyanosis, or edema. LUNGS: Decreased breath sounds at both lung bases. NEUROLOGICAL: Not cooperating. ABDOMEN: Soft, nontender, nondistended. Bowel sounds are present. PSYCHIATRIC: Appropriate affect and mood. Results Result Diagram: 02/05/17 0634 02/05/17 0634 Results 24 hrs Laboratory Tests Test 02/04/17 16:10 02/04/17 17:23 02/04/17 22:51 02/05/17 06:34 Lactic Acid Level 0.9 Bedside Glucose 123 140 White Blood Count 12.9 H Red Blood Count 4.36 L Hemoglobin 14.0 Hematocrit 42.6 Mean Corpuscular Volume 97.7 Mean Corpuscular Hemoglobin 32.1 Mean Corpuscular Hemoglobin Concent 32.9 Red Cell Distribution Width 13.2 Platelet Count 166 Mean Platelet Volume 11.3 H Neutrophils % 73.8 Lymphocytes % 18.7 Monocytes % 6.6 Eosinophils % 0.3 Basophils % 0.2 Nucleated Red Blood Cells % 0.0 Neutrophils # 9.6 H Lymphocytes # 2.4 Monocytes # 0.9 Eosinophils # 0.0 Basophils # 0.0 Nucleated Red Blood Cells # 0.0 Sodium Level 141 Potassium Level 4.1 Chloride Level 109 Carbon Dioxide Level 23 Anion Gap 13 # Blood Urea Nitrogen 30 H Creatinine 0.91 Glucose Level 134 Calcium Level 8.7 Test 02/05/17 07:44 02/05/17 11:56 Bedside Glucose 135 180 Medications Medications Current Medications Ondansetron HCl (Zofran Inj) 4 mg Q6H PRN IV NAUSEA AND/OR VOMITING; Start 02/03 at 19:30 Acetaminophen (Tylenol Tab) 650 mg Q6H PRN PO PAIN LEVEL 1-3 OR FEVER; Start at 19:30 Acetaminophen/ Hydrocodone Bitart ([place] (5/325)) 1 tab Q6H PRN PO MODERATE PAIN LEVEL 4-6; Start 02/03/17 at 19:30 Morphine Sulfate (morphine) 2 mg Q4H PRN IV SEVERE PAIN LEVEL 7-10; Start at 19:30 Docusate Sodium (Colace) 100 mg Q12H PRN PO CONSTIPATION; Start 02/03/17 at 19: 30 Enoxaparin Sodium (Lovenox) 40 mg DAILY SC Last administered on 02/05/17 08:27 ; Admin Dose 40 MG; Start 02/04/17 at 09:00 Atorvastatin Calcium (Lipitor) 40 mg QHS PO Last administered on 02/04/17 22:53 ; Admin Dose 40 MG; Start 02/03/17 at 21:00 Dorzolamide/ Timolol (Cosopt) 1 drop BID BOTH EYES Last administered on 08:33; Admin Dose 1 DROP; Start 02/03/17 at 21:00 Montelukast Sodium (Singulair) 10 mg QHS PO Last administered on 02/04/17 22:53 ; Admin Dose 10 MG; Start 02/03/17 at 21:00 Salmeterol Xinafoate/ Fluticasone (Advair 250/50 Diskus) 1 inh BID INH Last administered on 02/05/17 08:32; Admin Dose 1 INH; Start 02/03/17 at 21:00 Tamsulosin HCl (Flomax) 0.4 mg DAILY PO Last administered on 02/05/17 08:29; Admin Dose 0.4 MG; Start 02/04/17 at 09:00 Insulin Glargine (Lantus) 20 unit DAILY@20 SC Last administered on 02/04/17 23: 04; Admin Dose 20 UNIT; Start 02/03/17 at 20:00 Diagnostic Test (Pha) (Accu-Chek) 1 ea 02 XX ; Start 02/04/17 at 02:00 Miscellaneous Information 1 ea NOTE XX ; Start 02/03/17 at 20:00 Glucose (Glutose) 15 gm Q15M PRN PO DECREASED GLUCOSE; Start 02/03/17 at 20:00 Glucose (Glutose) 22.5 gm Q15M PRN PO DECREASED GLUCOSE; Start 02/03/17 at 20:00 Dextrose (D50w Syringe) 25 ml Q15M PRN IV DECREASED GLUCOSE; Start 02/03/17 at 20:00 Dextrose (D50w Syringe) 50 ml Q15M PRN IV DECREASED GLUCOSE; Start 02/03/17 at 20:00 Glucagon (Glucagen) 1 mg Q15M PRN IM DECREASED GLUCOSE; Start 02/03/17 at 20:00 Glucose (Glutose) 15 gm Q15M PRN BUCCAL DECREASED GLUCOSE; Start 02/03/17 at 20: 00 Amlodipine Besylate (Norvasc) 5 mg DAILY PO Last administered on 02/05/17 08:30 ; Admin Dose 5 MG; Start 02/04/17 at 09:00 Benazepril HCl 40 mg 40 mg DAILY PO Last administered on 02/05/17 08:30; Admin Dose 40 MG; Start 02/04/17 at 09:00 Potassium Chloride/Dextrose (KCl/D5W) 1,005 ml @ 50 mls/hr Q20H6M IV Last administered on 02/04/17 18:33; Admin Dose 75 MLS/HR; Start 02/04/17 at 17:30 ASHA VERA MD Feb 05, 2017 14:39
--- NOTE | 2017-02-05 17:44 | PN ---
Date/Time of Note Date/Time of Note DATE: 02/05/17 TIME: 17:41 Assessment/Plan VTE Prophylaxis VTE Prophylaxis Intervention: LMWH Lines/Catheters IV [facility]ter Type (from [email or web address] Peripheral IV Urinary Cath still in place: No Assessment/Plan Chief Complaint/Hosp Course 1. Acute on chronic encephalopathy with possible syncope likely secondary to severe dehydration-slightly improved Continue IV fluids with D5W as per nephrology Carotid ultrasound and 2D echo showed no etiology for syncope PT and OT evaluation Patient appears to have moderate dementia and will need assisted living versus moving in with daughter 2. Diabetes with hyperglycemia-sugars are now stable A1c 8.6 Continue subcu insulin 3. Anion gap metabolic acidosis secondary to lactic acidosis versus starvation ketoacidosis-resolved 4. Leukocytosis, likely reactive. 5. Hypernatremia with azotemia secondary to dehydration-resolved Continue IV fluids with D5W for another day per nephrology Nephrology consultation appreciated 6. History of carotid endarterectomy Carotid ultrasound shows no significant findings 7. History of hypertension-stable Continue home medications. 8. Chronic obstructive pulmonary disease Continue home Advair. Prophylaxis: Lovenox Discharge planning: Anticipate DC in 1-2 days to either patient's daughter's home or assisted living Problems: Subjective 24 Hr Interval Summary Constitutional: disoriented Exam/Review of Systems Vital Signs Vitals Vital Signs Date Time Temp Pulse Resp B/P Pulse Ox O2 Delivery O2 Flow Rate FiO2 02/05/17 16:41 77 02/05/17 15:42 98.0 20 118/63 96 02/03/17 21:03 Room Air 02/03/17 19:00 2.0 Intake and Output 02/04/17 02/04/17 02/05/17 15:00 23:00 07:00 Intake Total 400 ml 1635 ml 750 ml Balance 400 ml 1635 ml 750 ml Exam Constitutional: alert Psych: confusion Respiratory: clear to auscultation Cardiovascular: regular rate and rhythm Gastrointestinal: soft, No distended Musculoskeletal: nl extremities to inspection Results Result Diagram: 02/05/17 0634 02/05/17 0634 Results 24 hrs Laboratory Tests Test 02/04/17 22:51 02/05/17 06:34 02/05/17 07:44 02/05/17 11:56 Bedside Glucose 140 135 180 White Blood Count 12.9 H Red Blood Count 4.36 L Hemoglobin 14.0 Hematocrit 42.6 Mean Corpuscular Volume 97.7 Mean Corpuscular Hemoglobin 32.1 Mean Corpuscular Hemoglobin Concent 32.9 Red Cell Distribution Width 13.2 Platelet Count 166 Mean Platelet Volume 11.3 H Neutrophils % 73.8 Lymphocytes % 18.7 Monocytes % 6.6 Eosinophils % 0.3 Basophils % 0.2 Nucleated Red Blood Cells % 0.0 Neutrophils # 9.6 H Lymphocytes # 2.4 Monocytes # 0.9 Eosinophils # 0.0 Basophils # 0.0 Nucleated Red Blood Cells # 0.0 Sodium Level 141 Potassium Level 4.1 Chloride Level 109 Carbon Dioxide Level 23 Anion Gap 13 # Blood Urea Nitrogen 30 H Creatinine 0.91 Glucose Level 134 Calcium Level 8.7 Medications Medications Current Medications Ondansetron HCl (Zofran Inj) 4 mg Q6H PRN IV NAUSEA AND/OR VOMITING; Start 02/03 at 19:30 Acetaminophen (Tylenol Tab) 650 mg Q6H PRN PO PAIN LEVEL 1-3 OR FEVER; Start at 19:30 Acetaminophen/ Hydrocodone Bitart ([place] (5/325)) 1 tab Q6H PRN PO MODERATE PAIN LEVEL 4-6; Start 02/03/17 at 19:30 Morphine Sulfate (morphine) 2 mg Q4H PRN IV SEVERE PAIN LEVEL 7-10; Start at 19:30 Docusate Sodium (Colace) 100 mg Q12H PRN PO CONSTIPATION; Start 02/03/17 at 19: 30 Enoxaparin Sodium (Lovenox) 40 mg DAILY SC Last administered on 02/05/17 08:27 ; Admin Dose 40 MG; Start 02/04/17 at 09:00 Atorvastatin Calcium (Lipitor) 40 mg QHS PO Last administered on 02/04/17 22:53 ; Admin Dose 40 MG; Start 02/03/17 at 21:00 Dorzolamide/ Timolol (Cosopt) 1 drop BID BOTH EYES Last administered on 08:33; Admin Dose 1 DROP; Start 02/03/17 at 21:00 Montelukast Sodium (Singulair) 10 mg QHS PO Last administered on 02/04/17 22:53 ; Admin Dose 10 MG; Start 02/03/17 at 21:00 Salmeterol Xinafoate/ Fluticasone (Advair 250/50 Diskus) 1 inh BID INH Last administered on 02/05/17 08:32; Admin Dose 1 INH; Start 02/03/17 at 21:00 Tamsulosin HCl (Flomax) 0.4 mg DAILY PO Last administered on 02/05/17 08:29; Admin Dose 0.4 MG; Start 02/04/17 at 09:00 Insulin Glargine (Lantus) 20 unit DAILY@20 SC Last administered on 02/04/17 23: 04; Admin Dose 20 UNIT; Start 02/03/17 at 20:00 Diagnostic Test (Pha) (Accu-Chek) 1 ea 02 XX ; Start 02/04/17 at 02:00 Miscellaneous Information 1 ea NOTE XX ; Start 02/03/17 at 20:00 Glucose (Glutose) 15 gm Q15M PRN PO DECREASED GLUCOSE; Start 02/03/17 at 20:00 Glucose (Glutose) 22.5 gm Q15M PRN PO DECREASED GLUCOSE; Start 02/03/17 at 20:00 Dextrose (D50w Syringe) 25 ml Q15M PRN IV DECREASED GLUCOSE; Start 02/03/17 at 20:00 Dextrose (D50w Syringe) 50 ml Q15M PRN IV DECREASED GLUCOSE; Start 02/03/17 at 20:00 Glucagon (Glucagen) 1 mg Q15M PRN IM DECREASED GLUCOSE; Start 02/03/17 at 20:00 Glucose (Glutose) 15 gm Q15M PRN BUCCAL DECREASED GLUCOSE; Start 02/03/17 at 20: 00 Amlodipine Besylate (Norvasc) 5 mg DAILY PO Last administered on 02/05/17 08:30 ; Admin Dose 5 MG; Start 02/04/17 at 09:00 Benazepril HCl 40 mg 40 mg DAILY PO Last administered on 02/05/17 08:30; Admin Dose 40 MG; Start 02/04/17 at 09:00 Potassium Chloride/Dextrose (KCl/D5W) 1,005 ml @ 50 mls/hr Q20H6M IV Last administered on 02/04/17 18:33; Admin Dose 75 MLS/HR; Start 02/04/17 at 17:30 JOY SCHAEFFER Feb 05, 2017 17:44
[2017-02-05] MEDS: MONTELUKAST 10 MG TAB PO SCH (21:18)
[2017-02-05] MEDS: ATORVASTATIN 40 MG TAB PO SCH (21:18)
[2017-02-05] MEDS: INSULIN GLARGINE [LANtus] 3 ML PEN SC SCH (21:28)
[2017-02-06] VITALS (12 sets, daily range): BP systolic 130–139; BP diastolic 63–68; PULSE 64–85; RESP 17–20
[2017-02-06 06:23] LABS: ADD SCAN DIFF NO
[2017-02-06 06:30] LABS: BASOPHILS % 0.2 % (0.0-2.0); EOSINOPHILS # 0.2 10^3/ul (0.0-0.5); EOSINOPHILS % 2.3 % (0.0-7.0); HEMATOCRIT 38.5 % (42.0-52.0); HEMOGLOBIN 12.6 g/dl (14.0-18.0); LYMPHOCYTES # 1.5 10^3/ul (0.8-2.9); LYMPHOCYTES % 17.8 % (15.0-51.0); MEAN CORPUSCULAR HGB CONC 32.7 g/dl (32.0-37.0); MEAN CORPUSCULAR VOLUME 97.7 fl (82.0-101.0); MEAN PLATELET VOLUME 11.8 fl (7.4-10.4); MONOCYTE # 0.8 10^3/ul (0.3-0.9); MONOCYTES % 9.5 % (0.0-11.0); PLATELET COUNT 143 10^3/UL (140-415); RED BLOOD COUNT 3.94 10^6/ul (4.70-6.10); RED CELL DISTRIBUTION WIDTH 12.7 % (11.5-14.5); WHITE BLOOD COUNT 8.6 10^3/ul (4.8-10.8)
[2017-02-06 07:01] LABS: CALCIUM 8.5 mg/dl (8.4-10.2); CREATININE 0.9 mg/dl (0.61-1.24)
[2017-02-06] MEDS: INSULIN ASPART [NOVOLOG] 3 ML PEN SC SCH ×7 (07:48→21:00)
[2017-02-06] MEDS: TAMSULOSIN (SR) 0.4 MG CAP PO SCH (08:39)
[2017-02-06] MEDS: BENAZEPRIL 40 MG TAB PO SCH (08:40)
[2017-02-06] MEDS: AMLODIPINE 5 MG TAB PO SCH (08:41)
[2017-02-06] MEDS: ENOXAPARIN 40 MG/0.4 ML SYG SC SCH (08:41)
[2017-02-06] MEDS: SALMETEROL/FLUTICASONE 250/50 INHA INH SCH ×2 (08:42→21:39)
[2017-02-06] MEDS: DORZOLAMIDE/TIMOLOL 10 ML OPH BOTH EYES SCH ×2 (08:42→21:40)
--- NOTE | 2017-02-06 10:12 | CONS ---
Date/Time of Note Date/Time of Note DATE: 02/06/17 TIME: 10:11 Assessment/Plan Assessment/Plan Additional Assessment/Plan 1. Acute hypernatremia, likely secondary to free water deficit of approximately 2 liters. 2. Prerenal azotemia. 3. Anion gap metabolic acidosis secondary to lactic acidosis. 4. Acute on chronic encephalopathy with possible syncope secondary to moderate to severe dehydration. 5. Diabetes mellitus type 2. 6. Hypertension. 7. Hyperlipidemia. 8. History of carotid endarterectomy. 9. Chronic obstructive pulmonary disease with previous history of smoking. PLAN: Cr and Na imrpoved with D5W IVF d/c IVF ok to d/c will follow up Follow up with me in clinic in 1-2 week Consultation Date/Type/Reason Admit Date/Time Feb 03, 2017 at 16:01 Type of Consultation: NEPHROLOGY Referring Provider: JOY SCHAEFFER 24 HR Interval Summary Free Text/Dictation doing ok, Na normal< cr normal ;pt more alert and awake Exam/Review of Systems Vital Signs Vitals Vital Signs Date Time Temp Pulse Resp B/P Pulse Ox O2 Delivery O2 Flow Rate FiO2 02/06/17 08:11 64 02/06/17 07:52 98.7 20 139/68 98 02/03/17 21:03 Room Air 02/03/17 19:00 2.0 Intake and Output 02/05/17 02/05/17 02/06/17 15:00 23:00 07:00 Intake Total 2320 ml 100 ml Balance 2320 ml 100 ml Exam GENERAL: Awake, alert, not oriented to the place and person. HEENT: Pupils equal, round, reactive to light and accommodation. Extraocular muscles are intact. EXTREMITIES: No clubbing, cyanosis, or edema. LUNGS: Decreased breath sounds at both lung bases. NEUROLOGICAL: Not cooperating. ABDOMEN: Soft, nontender, nondistended. Bowel sounds are present. PSYCHIATRIC: Appropriate affect and mood. Results Result Diagram: 02/06/17 0550 02/06/17 0550 Results 24 hrs Laboratory Tests Test 02/05/17 11:56 02/05/17 17:48 02/05/17 21:17 02/06/17 05:50 Bedside Glucose 180 152 205 White Blood Count 8.6 # Red Blood Count 3.94 L Hemoglobin 12.6 L Hematocrit 38.5 L Mean Corpuscular Volume 97.7 Mean Corpuscular Hemoglobin 32.0 Mean Corpuscular Hemoglobin Concent 32.7 Red Cell Distribution Width 12.7 Platelet Count 143 Mean Platelet Volume 11.8 H Neutrophils % 70.0 Lymphocytes % 17.8 Monocytes % 9.5 Eosinophils % 2.3 Basophils % 0.2 Nucleated Red Blood Cells % 0.0 Neutrophils # 6.0 Lymphocytes # 1.5 Monocytes # 0.8 Eosinophils # 0.2 Basophils # 0.0 Nucleated Red Blood Cells # 0.0 Sodium Level 141 Potassium Level 4.0 Chloride Level 108 Carbon Dioxide Level 26 Anion Gap 11 Blood Urea Nitrogen 24 H Creatinine 0.90 Glucose Level 139 Calcium Level 8.5 Test 02/06/17 07:44 Bedside Glucose 140 Medications Medications Current Medications Ondansetron HCl (Zofran Inj) 4 mg Q6H PRN IV NAUSEA AND/OR VOMITING; Start 02/03 at 19:30 Acetaminophen (Tylenol Tab) 650 mg Q6H PRN PO PAIN LEVEL 1-3 OR FEVER; Start at 19:30 Acetaminophen/ Hydrocodone Bitart ([place] (5/325)) 1 tab Q6H PRN PO MODERATE PAIN LEVEL 4-6; Start 02/03/17 at 19:30 Morphine Sulfate (morphine) 2 mg Q4H PRN IV SEVERE PAIN LEVEL 7-10; Start at 19:30 Docusate Sodium (Colace) 100 mg Q12H PRN PO CONSTIPATION; Start 02/03/17 at 19: 30 Enoxaparin Sodium (Lovenox) 40 mg DAILY SC Last administered on 02/06/17 08:41 ; Admin Dose 40 MG; Start 02/04/17 at 09:00 Atorvastatin Calcium (Lipitor) 40 mg QHS PO Last administered on 02/05/17 21:18 ; Admin Dose 40 MG; Start 02/03/17 at 21:00 Dorzolamide/ Timolol (Cosopt) 1 drop BID BOTH EYES Last administered on 08:42; Admin Dose 1 DROP; Start 02/03/17 at 21:00 Montelukast Sodium (Singulair) 10 mg QHS PO Last administered on 02/05/17 21:18 ; Admin Dose 10 MG; Start 02/03/17 at 21:00 Salmeterol Xinafoate/ Fluticasone (Advair 250/50 Diskus) 1 inh BID INH Last administered on 02/06/17 08:42; Admin Dose 1 INH; Start 02/03/17 at 21:00 Tamsulosin HCl (Flomax) 0.4 mg DAILY PO Last administered on 02/06/17 08:39; Admin Dose 0.4 MG; Start 02/04/17 at 09:00 Insulin Glargine (Lantus) 20 unit DAILY@20 SC Last administered on 02/04/17 23: 04; Admin Dose 20 UNIT; Start 02/03/17 at 20:00 Diagnostic Test (Pha) (Accu-Chek) 1 ea 02 XX ; Start 02/04/17 at 02:00 Miscellaneous Information 1 ea NOTE XX ; Start 02/03/17 at 20:00 Glucose (Glutose) 15 gm Q15M PRN PO DECREASED GLUCOSE; Start 02/03/17 at 20:00 Glucose (Glutose) 22.5 gm Q15M PRN PO DECREASED GLUCOSE; Start 02/03/17 at 20:00 Dextrose (D50w Syringe) 25 ml Q15M PRN IV DECREASED GLUCOSE; Start 02/03/17 at 20:00 Dextrose (D50w Syringe) 50 ml Q15M PRN IV DECREASED GLUCOSE; Start 02/03/17 at 20:00 Glucagon (Glucagen) 1 mg Q15M PRN IM DECREASED GLUCOSE; Start 02/03/17 at 20:00 Glucose (Glutose) 15 gm Q15M PRN BUCCAL DECREASED GLUCOSE; Start 02/03/17 at 20: 00 Amlodipine Besylate (Norvasc) 5 mg DAILY PO Last administered on 02/06/17 08:41 ; Admin Dose 5 MG; Start 02/04/17 at 09:00 Benazepril HCl (Lotensin) 40 mg DAILY PO Last administered on 02/06/17 08:40; Admin Dose 40 MG; Start 02/04/17 at 09:00 ASHA VERA MD Feb 06, 2017 10:12
--- NOTE | 2017-02-06 15:42 | PN ---
Date/Time of Note Date/Time of Note DATE: 02/06/17 TIME: 15:39 Assessment/Plan VTE Prophylaxis VTE Prophylaxis Intervention: LMWH Lines/Catheters Urinary Cath still in place: No Assessment/Plan Chief Complaint/Hosp Course 1. Acute on chronic encephalopathy with possible syncope likely secondary to severe dehydration-slightly improved Status post D5W Carotid ultrasound and 2D echo showed no etiology for syncope PT and OT evaluation Patient appears to have moderate dementia and will need assisted living versus moving in with daughter 2. Diabetes with hyperglycemia-sugars are now stable A1c 8.6 Continue subcu insulin 3. Anion gap metabolic acidosis secondary to lactic acidosis versus starvation ketoacidosis-resolved 4. Leukocytosis, likely reactive. 5. Hypernatremia with azotemia secondary to dehydration-resolved Status post D5W Nephrology consultation appreciated 6. History of carotid endarterectomy Carotid ultrasound shows no significant findings 7. History of hypertension-stable Continue home medications. 8. Chronic obstructive pulmonary disease Continue home Advair. Prophylaxis: Lovenox Discharge planning: Patient is medically clear for DC but family would like to take him home tomorrow and need another day to prepare Problems: Subjective 24 Hr Interval Summary Constitutional: no complaints Exam/Review of Systems Vital Signs Vitals Vital Signs Date Time Temp Pulse Resp B/P Pulse Ox O2 Delivery O2 Flow Rate FiO2 02/06/17 15:20 98.8 79 20 135/63 95 02/03/17 21:03 Room Air 02/03/17 19:00 2.0 Intake and Output 02/05/17 02/05/17 02/06/17 15:00 23:00 07:00 Intake Total 2320 ml 100 ml Balance 2320 ml 100 ml Exam Constitutional: alert Respiratory: clear to auscultation Cardiovascular: regular rate and rhythm Gastrointestinal: soft, No distended Musculoskeletal: nl extremities to inspection Results Result Diagram: 02/06/17 0550 02/06/17 0550 Results 24 hrs Laboratory Tests Test 02/05/17 17:48 02/05/17 21:17 02/06/17 05:50 02/06/17 07:44 Bedside Glucose 152 205 140 White Blood Count 8.6 # Red Blood Count 3.94 L Hemoglobin 12.6 L Hematocrit 38.5 L Mean Corpuscular Volume 97.7 Mean Corpuscular Hemoglobin 32.0 Mean Corpuscular Hemoglobin Concent 32.7 Red Cell Distribution Width 12.7 Platelet Count 143 Mean Platelet Volume 11.8 H Neutrophils % 70.0 Lymphocytes % 17.8 Monocytes % 9.5 Eosinophils % 2.3 Basophils % 0.2 Nucleated Red Blood Cells % 0.0 Neutrophils # 6.0 Lymphocytes # 1.5 Monocytes # 0.8 Eosinophils # 0.2 Basophils # 0.0 Nucleated Red Blood Cells # 0.0 Sodium Level 141 Potassium Level 4.0 Chloride Level 108 Carbon Dioxide Level 26 Anion Gap 11 Blood Urea Nitrogen 24 H Creatinine 0.90 Glucose Level 139 Calcium Level 8.5 Test 02/06/17 11:23 Bedside Glucose 198 Medications Medications Current Medications Ondansetron HCl (Zofran Inj) 4 mg Q6H PRN IV NAUSEA AND/OR VOMITING; Start 02/03 at 19:30 Acetaminophen (Tylenol Tab) 650 mg Q6H PRN PO PAIN LEVEL 1-3 OR FEVER; Start at 19:30 Acetaminophen/ Hydrocodone Bitart ([place] (5/325)) 1 tab Q6H PRN PO MODERATE PAIN LEVEL 4-6; Start 02/03/17 at 19:30 Morphine Sulfate (morphine) 2 mg Q4H PRN IV SEVERE PAIN LEVEL 7-10; Start at 19:30 Docusate Sodium (Colace) 100 mg Q12H PRN PO CONSTIPATION; Start 02/03/17 at 19: 30 Enoxaparin Sodium (Lovenox) 40 mg DAILY SC Last administered on 02/06/17 08:41 ; Admin Dose 40 MG; Start 02/04/17 at 09:00 Atorvastatin Calcium (Lipitor) 40 mg QHS PO Last administered on 02/05/17 21:18 ; Admin Dose 40 MG; Start 02/03/17 at 21:00 Dorzolamide/ Timolol (Cosopt) 1 drop BID BOTH EYES Last administered on 08:42; Admin Dose 1 DROP; Start 02/03/17 at 21:00 Montelukast Sodium (Singulair) 10 mg QHS PO Last administered on 02/05/17 21:18 ; Admin Dose 10 MG; Start 02/03/17 at 21:00 Salmeterol Xinafoate/ Fluticasone (Advair 250/50 Diskus) 1 inh BID INH Last administered on 02/06/17 08:42; Admin Dose 1 INH; Start 02/03/17 at 21:00 Tamsulosin HCl (Flomax) 0.4 mg DAILY PO Last administered on 02/06/17 08:39; Admin Dose 0.4 MG; Start 02/04/17 at 09:00 Insulin Glargine (Lantus) 20 unit DAILY@20 SC Last administered on 02/04/17 23: 04; Admin Dose 20 UNIT; Start 02/03/17 at 20:00 Diagnostic Test (Pha) (Accu-Chek) 1 ea 02 XX ; Start 02/04/17 at 02:00 Miscellaneous Information 1 ea NOTE XX ; Start 02/03/17 at 20:00 Glucose (Glutose) 15 gm Q15M PRN PO DECREASED GLUCOSE; Start 02/03/17 at 20:00 Glucose (Glutose) 22.5 gm Q15M PRN PO DECREASED GLUCOSE; Start 02/03/17 at 20:00 Dextrose (D50w Syringe) 25 ml Q15M PRN IV DECREASED GLUCOSE; Start 02/03/17 at 20:00 Dextrose (D50w Syringe) 50 ml Q15M PRN IV DECREASED GLUCOSE; Start 02/03/17 at 20:00 Glucagon (Glucagen) 1 mg Q15M PRN IM DECREASED GLUCOSE; Start 02/03/17 at 20:00 Glucose (Glutose) 15 gm Q15M PRN BUCCAL DECREASED GLUCOSE; Start 02/03/17 at 20: 00 Amlodipine Besylate (Norvasc) 5 mg DAILY PO Last administered on 02/06/17 08:41 ; Admin Dose 5 MG; Start 02/04/17 at 09:00 Benazepril HCl (Lotensin) 40 mg DAILY PO Last administered on 02/06/17 08:40; Admin Dose 40 MG; Start 02/04/17 at 09:00 JOY SCHAEFFER Feb 06, 2017 15:42
[2017-02-06] MEDS: MONTELUKAST 10 MG TAB PO SCH (21:40)
[2017-02-06] MEDS: ATORVASTATIN 40 MG TAB PO SCH (21:40)
[2017-02-06] MEDS: INSULIN GLARGINE [LANtus] 3 ML PEN SC SCH (21:42)
[2017-02-07] VITALS (10 sets, daily range): BP systolic 110–132; BP diastolic 59–69; PULSE 69–87; RESP 16–18
[2017-02-07] MEDS: ACCUCHECK AT 2AM (Patients on SS coverage) XX SCH (02:56)
[2017-02-07 06:48] LABS: ADD SCAN DIFF NO
[2017-02-07 06:59] LABS: BASOPHILS % 0.1 % (0.0-2.0); EOSINOPHILS # 0.3 10^3/ul (0.0-0.5); EOSINOPHILS % 3.6 % (0.0-7.0); HEMATOCRIT 38.1 % (42.0-52.0); HEMOGLOBIN 12.6 g/dl (14.0-18.0); LYMPHOCYTES # 1.5 10^3/ul (0.8-2.9); LYMPHOCYTES % 19.4 % (15.0-51.0); MEAN CORPUSCULAR HEMOGLOBIN 32.2 pg (29.0-33.0); MEAN CORPUSCULAR HGB CONC 33.1 g/dl (32.0-37.0); MEAN CORPUSCULAR VOLUME 97.4 fl (82.0-101.0); MEAN PLATELET VOLUME 11.6 fl (7.4-10.4); MONOCYTE # 0.7 10^3/ul (0.3-0.9); MONOCYTES % 9.6 % (0.0-11.0); NEUTROPHILS % 66.9 % (39.0-77.0); PLATELET COUNT 132 10^3/UL (140-415); RED BLOOD COUNT 3.91 10^6/ul (4.70-6.10); RED CELL DISTRIBUTION WIDTH 12.8 % (11.5-14.5); WHITE BLOOD COUNT 7.5 10^3/ul (4.8-10.8)
[2017-02-07 07:22] LABS: CALCIUM 8.3 mg/dl (8.4-10.2); CREATININE 0.73 mg/dl (0.61-1.24); POTASSIUM 3.7 mmol/L (3.5-5.1)
[2017-02-07] MEDS: INSULIN ASPART [NOVOLOG] 3 ML PEN SC SCH ×4 (07:55→12:50)
[2017-02-07] MEDS: SALMETEROL/FLUTICASONE 250/50 INHA INH SCH (08:12)
[2017-02-07] MEDS: TAMSULOSIN (SR) 0.4 MG CAP PO SCH (08:12)
[2017-02-07] MEDS: DORZOLAMIDE/TIMOLOL 10 ML OPH BOTH EYES SCH (08:12)
[2017-02-07] MEDS: BENAZEPRIL 40 MG TAB PO SCH (08:13)
[2017-02-07] MEDS: AMLODIPINE 5 MG TAB PO SCH (08:13)
[2017-02-07] MEDS: ENOXAPARIN 40 MG/0.4 ML SYG SC SCH (08:26)
--- NOTE | 2017-02-07 15:52 | PDOCDIS ---
Discharge Instructions CONDITION Patient Condition: Good HOME CARE INSTRUCTIONS: Special Diet: Diabetic ACTIVITY: Activity Restrictions: No Restrictions FOLLOW UP/APPOINTMENTS Appointments FOLLOW UP WITH YOUR PRIMARY CARE PHYSICIAN IN 1-2 WEEKS JOY SCHAEFFER Feb 07, 2017 15:52
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
--- NOTE | 2017-02-07 17:38 | CONS ---
Date/Time of Note Date/Time of Note DATE: 02/07/17 TIME: 17:37 Assessment/Plan Assessment/Plan Additional Assessment/Plan 1. Acute hypernatremia, likely secondary to free water deficit of approximately 2 liters. 2. Prerenal azotemia. 3. Anion gap metabolic acidosis secondary to lactic acidosis. 4. Acute on chronic encephalopathy with possible syncope secondary to moderate to severe dehydration. 5. Diabetes mellitus type 2. 6. Hypertension. 7. Hyperlipidemia. 8. History of carotid endarterectomy. 9. Chronic obstructive pulmonary disease with previous history of smoking. PLAN: Cr and Na imrpoved with D5W IVF ok to d/c will follow up Follow up with me in clinic in 1-2 week Consultation Date/Type/Reason Admit Date/Time Feb 03, 2017 at 16:01 Type of Consultation: NEPHROLOGY Referring Provider: JOY SCHAEFFER 24 HR Interval Summary Free Text/Dictation pt seen in AM, doing ok, possible plan for d/c Exam/Review of Systems Vital Signs Vitals Vital Signs Date Time Temp Pulse Resp B/P Pulse Ox O2 Delivery O2 Flow Rate FiO2 02/07/17 16:10 87 02/07/17 15:45 98.0 18 130/67 97 02/03/17 21:03 Room Air 02/03/17 19:00 2.0 Intake and Output 02/06/17 02/06/17 02/07/17 15:00 23:00 07:00 Intake Total 200 ml Balance 200 ml Exam GENERAL: Awake, alert, not oriented to the place and person. HEENT: Pupils equal, round, reactive to light and accommodation. Extraocular muscles are intact. EXTREMITIES: No clubbing, cyanosis, or edema. LUNGS: Decreased breath sounds at both lung bases. NEUROLOGICAL: Not cooperating. ABDOMEN: Soft, nontender, nondistended. Bowel sounds are present. PSYCHIATRIC: Appropriate affect and mood. Results Result Diagram: 02/07/17 0615 02/07/17 0615 Results 24 hrs Laboratory Tests Test 02/06/17 21:13 02/07/17 02:40 02/07/17 06:15 02/07/17 08:03 Bedside Glucose 174 102 96 White Blood Count 7.5 Red Blood Count 3.91 L Hemoglobin 12.6 L Hematocrit 38.1 L Mean Corpuscular Volume 97.4 Mean Corpuscular Hemoglobin 32.2 Mean Corpuscular Hemoglobin Concent 33.1 Red Cell Distribution Width 12.8 Platelet Count 132 L Mean Platelet Volume 11.6 H Neutrophils % 66.9 Lymphocytes % 19.4 Monocytes % 9.6 Eosinophils % 3.6 Basophils % 0.1 Nucleated Red Blood Cells % 0.0 Neutrophils # 5.0 Lymphocytes # 1.5 Monocytes # 0.7 Eosinophils # 0.3 Basophils # 0.0 Nucleated Red Blood Cells # 0.0 Sodium Level 142 Potassium Level 3.7 Chloride Level 111 H Carbon Dioxide Level 25 Anion Gap 10 Blood Urea Nitrogen 17 Creatinine 0.73 Glucose Level 96 # Calcium Level 8.3 L Test 02/07/17 12:17 Bedside Glucose 187 ASHA VERA MD Feb 07, 2017 17:38
== END 2017-02-07 16:54 | disposition home or self-care (01) | DRG 641 ==
LOC: E/R 13:31 → TEL 16:01
PROVIDERS: ADMIT Internal Medicine; ATTEND Internal Medicine
DX: E87.0 Hyperosmolality and hypernatremia (principal); E86.0 Dehydration; E87.2 Acidosis; F03.90 Unspecified dementia, unspecified severity, without behavioral disturbance, psychotic disturbance, mood disturbance, and anxiety; E11.65 Type 2 diabetes mellitus with hyperglycemia; T67.0XXA Heatstroke and sunstroke, initial encounter; J44.9 Chronic obstructive pulmonary disease, unspecified; Z86.73 Personal history of transient ischemic attack (TIA), and cerebral infarction without residual deficits; I10 Essential (primary) hypertension; X30.XXXA Exposure to excessive natural heat, initial encounter; Y93.9 Activity, unspecified; G94 Other disorders of brain in diseases classified elsewhere; R56.9 Unspecified convulsions; G93.89 Other specified disorders of brain; Z87.891 Personal history of nicotine dependence; Z60.2 Problems related to living alone
CPT/HCPCS: 70450; 71010; 80048; 80053; 80061; 81001; 82962; 83036; 83605; 83690; 83735; 84100; 84436; 84479; 84484; 85025; 93005; 93306; 93880; 96361; 96365; 96375; 97166; J1650; J1815; J1953; J3480; J7030; J7070